=== PATIENT | male | born 1995 | race Two or more races ===

== ENCOUNTER 2017-12-01 11:34 | Outpatient (CLI) | payer BC ==
[2017-12-01 12:23] LABS: APPEARANCE,URINE CLEAR (CLEAR); BILIRUBIN,URINE NEGATIVE (NEGATIVE); BLOOD, URINE 1+ Ery/uL (NEGATIVE); COLOR,URINE YELLOW (YELLOW); KETONES,URINE NEGATIVE (NEGATIVE); LEUKOCYTE ESTERASE ,URINE NEGATIVE (NEGATIVE); NITRITE, URINE NEGATIVE (NEGATIVE); PROTEIN,URINE NEGATIVE (NEGATIVE); UGLUCOSE NEGATIVE (NEGATIVE); UROBILINOGEN,URINE 0.2 EU/dL (0.2)
[2017-12-01 13:04] LABS: ALBUMIN 4.2 g/dL (3.4-5.0); BILIRUBIN,TOTAL 0.7 mg/dL (0.2-1.0); CALCIUM, SERUM 8.8 mg/dL (8.5-10.1); POTASSIUM 4.2 mmol/L (3.5-5.1); TOTAL PROTEIN, SERUM 7.7 g/dL (6.4-8.2)
[2017-12-01 13:14] LABS: THYROID STIMULATING HORMONE 0.954 uIU/mL (0.358-3.74)
[2017-12-01 13:31] LABS: BASOPHILS % (AUTO) 0.7 % (0.0-2.0); EOSINOPHILS % (AUTO) 9.2 % (0.0-6.0); HEMATOCRIT 45 % (39-51); HEMOGLOBIN 14.1 g/dL (13.5-17.5); LYMPHOCYTES # (AUTO) 1.6 /CMM (0.8-4.8); LYMPHOCYTES % (AUTO) 35.3 % (20.0-44.0); MEAN CORPUSCULAR HGB CONC 32 g/dl (31.0-36.0); MEAN CORPUSCULAR VOLUME 72 fL (80-96); MONOCYTES # (AUTO) 0.3 /CMM (0.1-1.30); MONOCYTES % (AUTO) 5.9 % (2.0-12.0); NEUTROPHILS # (AUTO) 2.2 /CMM (1.8-8.9); NEUTROPHILS % (AUTO) 48.9 % (43.0-81.0); PLATELET COUNT (AUTO) 243 /CMM (150-450); RDW COEFFICIENT OF VARIATION 13.7 (11.5-15.0); RED BLOOD CELL COUNT(AUTO) 6.24 MIL/uL (4.5-6.0); WHITE BLOOD COUNT (AUTO) 4.5 K/uL (4.3-11.0)
[2017-12-01 13:35] LABS: BACTERIA,URINE Rare /HPF (None Seen); MUCUS,URINE Few /LPF (None Seen); SQUAMOUS EPITHELIAL CELL,UR None Seen /HPF (None Seen)
[2017-12-01 16:11] LABS: EOSINOPHILS % (MANUAL) 8 % (0-4); LYMPHOCYTES % (MANUAL) 38 % (16-48); MONOCYTES % (MANUAL) 2 % (0-11.0); NEUTROPHILS % (MANUAL) 52 (42-76)
== END 2017-12-01 23:59 | disposition home or self-care (01) ==
LOC: LAB 11:34
PROVIDERS: ATTEND Legal Medicine
DX: Z00.00 Encounter for general adult medical examination without abnormal findings (principal)
CPT/HCPCS: 36415; 80053-TC; 80061-TC; 81000-TC; 84443-TC; 85025-TC; 86592; 86694; 86695; 87491; 87591

== ENCOUNTER 2018-02-01 17:26 | Emergency (ER) | payer BC ==
[~2018-02-01] VITALS: Ht 175.3 cm; Wt 61.2 kg
--- NOTE | 2018-02-01 17:30 | NUR ---
BB MOTHER FOR RT ELBOW PAIN, LEFT KNEE PAIN S/P FALL WHILE PLAYING BASKETBALL. NOTED DISLOCATED RIGHT ARM ON TEMPORARY SLING. DENIES KO. DENIES PAIN ELSWHERE. PT AAOX4. MOM AT BS. VSS. SAFETY AND COMFORT MEASURES PROVIDED. WILL MONITOR.
[2018-02-01] MEDS ORDERED: HYDROCODONE/APAP 5/325MG 1 EACH TABLET ONE (17:37)
[2018-02-01] MEDS: HYDROCODONE/APAP 5/325MG 1 EACH TABLET PO ONE (18:00)
--- NOTE | 2018-02-01 18:37 | NUR ---
Patient discharged to home in stable condition. Written and verbal after care instructions given. Patient verbalizes understanding of instruction.
[2018-02-01 18:38] VITALS: BP 119/71
== END 2018-02-01 18:38 | disposition home or self-care (01) ==
LOC: ER 17:29
DX: S50.01XA Contusion of right elbow, initial encounter (principal); S80.02XA Contusion of left knee, initial encounter; S09.8XXA Other specified injuries of head, initial encounter; W18.30XA Fall on same level, unspecified, initial encounter; Y93.67 Activity, basketball; Y92.89 Other specified places as the place of occurrence of the external cause; Y99.8 Other external cause status
CPT/HCPCS: 73070; 99284; A4606; Z7610

== ENCOUNTER 2019-08-15 12:50 | Emergency (ER) | payer BC ==
[~2019-08-15] VITALS: Ht 175.3 cm; Wt 68.0 kg
[2019-08-15 13:23] VITALS: BP 109/65
[2019-08-15] MEDS ORDERED: IBUPROFEN 400 MG TABLET ONE (13:42)
[2019-08-15] MEDS ORDERED: IBUPROFEN 400 MG TABLET PO ONE (14:00)
--- NOTE | 2019-08-15 15:27 | NUR ---
Patient discharged to home in stable condition. Written and verbal after care instructions given. Patient verbalizes understanding of instruction.
== END 2019-08-15 15:27 | disposition home or self-care (01) ==
LOC: ER 12:51
DX: S69.82XA Other specified injuries of left wrist, hand and finger(s), initial encounter (principal); Y04.0XXA Assault by unarmed brawl or fight, initial encounter; Y93.67 Activity, basketball; Y92.89 Other specified places as the place of occurrence of the external cause; Y99.8 Other external cause status
CPT/HCPCS: 71046; 73130-TC

== ENCOUNTER 2020-07-20 10:56 | Outpatient (CLI) | payer BC ==
[2020-07-20 11:44] LABS: BILIRUBIN,URINE NEGATIVE (NEGATIVE); COLOR,URINE YELLOW (YELLOW); LEUKOCYTE ESTERASE ,URINE NEGATIVE (NEGATIVE); NITRITE, URINE NEGATIVE (NEGATIVE); PH,URINE 7.5 (5.0-8.0); PROTEIN,URINE NEGATIVE (NEGATIVE); UGLUCOSE NEGATIVE (NEGATIVE); UROBILINOGEN,URINE 0.2 EU/dL (0.2)
[2020-07-20 11:55] LABS: BASOPHILS % (AUTO) 0.6 % (0.0-2.0); HEMATOCRIT 49 % (39-51); HEMOGLOBIN 15.5 g/dL (13.5-17.5); LYMPHOCYTES # (AUTO) 1.6 /CMM (0.8-4.8); LYMPHOCYTES % (AUTO) 30.3 % (20.0-44.0); MEAN CORPUSCULAR HGB CONC 31 g/dl (31.0-36.0); MEAN CORPUSCULAR VOLUME 72 fL (80-96); MONOCYTES # (AUTO) 0.3 /CMM (0.1-1.30); MONOCYTES % (AUTO) 6.5 % (2.0-12.0); NEUTROPHILS # (AUTO) 2.9 /CMM (1.8-8.9); NEUTROPHILS % (AUTO) 54.6 % (43.0-81.0); PLATELET COUNT (AUTO) 219 /CMM (150-450); WHITE BLOOD COUNT (AUTO) 5.4 K/uL (4.3-11.0)
[2020-07-20 12:12] LABS: ALBUMIN 4.5 g/dL (3.4-5.0); BILIRUBIN,TOTAL 0.5 mg/dL (0.2-1.0); CALCIUM, SERUM 9.3 mg/dL (8.5-10.1); POTASSIUM 4.4 mmol/L (3.5-5.1); TOTAL PROTEIN, SERUM 8.5 g/dL (6.4-8.2)
[2020-07-20 12:34] LABS: CREATININE 0.9 mg/dL (0.6-1.3)
[2020-07-20 12:45] LABS: THYROID STIMULATING HORMONE 2.156 uIU/mL (0.358-3.74)
[2020-07-20 13:01] LABS: BACTERIA,URINE None seen /HPF (None Seen); SQUAMOUS EPITHELIAL CELL,UR Few /HPF (None Seen); WBC,URINE NONE SEEN /HPF (0-3)
[2020-07-21 08:06] LABS: RUBELLA ANTIBODIES, IGG 1.53 index (Immune >0.99)
== END 2020-07-20 23:59 | disposition home or self-care (01) ==
LOC: LAB 10:56
PROVIDERS: ATTEND Legal Medicine
DX: Z00.00 Encounter for general adult medical examination without abnormal findings (principal)
CPT/HCPCS: 36415; 80053-TC; 80061-TC; 81001; 82306; 84443-TC; 85025-TC; 86706; 86735; 86762; 86765; 86787

== ENCOUNTER → 2022-02-22 | Outpatient (CLI) | payer BC | END | disposition home or self-care (01) | LOC: LAB 10:05 | PROVIDERS: ATTEND Legal Medicine | DX: Z23 Encounter for immunization (principal) | CPT/HCPCS: 36415; 86480 ==